=== PATIENT | female | born 1940 | race Caucasian/White ===

== ENCOUNTER 2017-10-02 08:00 | Inpatient (IN) ==
[2017-09-26 14:29] LABS: Basophils # (Auto) 0 K/mcL (0.0-0.3); Basophils % (Auto) 0.4 % (0.0-2.0); Eosinophils # (Auto) 0.2 K/mcL (0.0-0.7); Eosinophils % (Auto) 2.7 % (0.0-7.0); Granulocytes % (Auto) 69.3 % (38.0-78.0); Lymphocytes # (Auto) 1.5 K/mcL (1.5-4.8); Lymphocytes % (Auto) 18.3 % (15.5-49.0); Mean Cell Volume 95.4 fL (80.0-100.0); Mean Corpuscular HGB Conc 34.4 g/dL (31.0-36.0); Mean Corpuscular Hemoglobin 32.8 pg (26.0-34.0); Monocytes # (Auto) 0.8 K/mcL (0.1-0.9); Monocytes % (Auto) 9.3 % (1.0-12.0); Platelet Count 221 K/mcL (140-440); RBC 4.23 M/mcL (4.00-5.20); Red Cell Distribution Width 13.7 % (11.5-14.5)
[2017-09-26 14:35] LABS: Blood Urea Nitrogen 13 mg/dl (8-23)
[~2017-10-02 08:00] MED LIST: CELECOXIB 200 MG CAPSULE PO SCH; PREGABALIN 75 MG CAPSULE PO SCH; ceFAZolin 1 GM VIAL IV SCH; oxyCODONE 10 MG TAB.ER.12H PO SCH
[2017-10-02] MEDS ORDERED: IPRATROPIUM/ALBUTEROL 3 ML AMPUL.NEB NEB ONE ×2 (10:54→10:55)
[2017-10-02] MEDS ORDERED: MIDAZOLAM 5 MG/5 ML VIAL ONE (11:19)
[2017-10-02] MEDS ORDERED: DEXAMETHASONE 10 MG/ML VIAL ONE (11:19)
[2017-10-02] MEDS ORDERED: PROPOFOL 200 MG/20 ML VIAL IV ONE (11:19)
[2017-10-02] MEDS ORDERED: PHENYLEPHRINE 10 MG/ML VIAL ONE (11:19)
[2017-10-02 11:23] LABS: Appearance,Urine CLEAR; Bacteria,Urine 0 /hpf (0); Bilirubin,Urine NEG (NEG); Color,Urine YELLOW; Glucose,Urine (UA) NEGATIVE (NEG); Leukocyte Esterase,Urine NEG /uL (NEG); Mucus,Urine FEW /hpf (0); Protein,Urine NEG (NEG); Specific Gravity,Urine 1.011 (1.000-1.035); Urine Blood 0.03 mg/dL (<0.03); Urine RBC 2 /hpf (0-1); Urine Squamous Epithelial Cell 0 /hpf (0-4); Urine WBC < 1 /hpf (0-4); Urobilinogen,Urine NEG (NEG)
[2017-10-02] MEDS ORDERED: GENTAMICIN SULFATE 800 MG/20 ML VIAL IR ONE (11:52)
--- NOTE | 2017-10-02 12:55 | Brief Operative Note ---
Date of procedure: 10/02/17 Pre-op diagnosis: left hip oa Post-op diagnosis: same Procedure: left total hip arthroplasty Grafts/Implants: Yes Anesthesia: spinal Complications: none Surgeon: Ori Johnson Smoke Jumper: Aracelis Marquez Estimated blood loss (cc): 100 Specimens Removed/Pathology: none sent Condition: stable Disposition: PACU
[2017-10-02] MEDS ORDERED: MAGNESIUM HYDROXIDE 30 ML ORAL.SUSP PO PRN (12:56)
[2017-10-02] MEDS ORDERED: BISACODYL 10 MG SUPP.RECT PR PRN (12:56)
[2017-10-02] MEDS ORDERED: ONDANSETRON 4 MG/2 ML VIAL IV PRN ×2 (12:56→13:12)
[2017-10-02] MEDS ORDERED: TRANEXAMIC ACID 1,000 MG/10 ML VIAL IV ONE (12:56)
[2017-10-02] MEDS ORDERED: METHOCARBAMOL 750 MG TABLET PO PRN (12:56)
[2017-10-02] MEDS ORDERED: ONDANSETRON ODT 4 MG TABLET SL PRN (12:56)
[2017-10-02] MEDS ORDERED: ACETAMINOPHEN 325 MG TABLET PO PRN (12:56)
[2017-10-02] MEDS ORDERED: BENZOCAINE/MENTHOL 1 LOZENGE PO PRN ×2 (12:56→13:12)
[2017-10-02] MEDS ORDERED: FLEETS ADULT ENEMA PR PRN (12:56)
[2017-10-02] MEDS ORDERED: POLYETHYLENE GLYCOL 3350 17 GM PACKET PO PRN (12:56)
[2017-10-02] MEDS ORDERED: NALOXONE HCL 0.4 MG/ML VIAL IV PRN (13:12)
[2017-10-02] MEDS ORDERED: ACETAMINOPHEN 900 MG/90 ML BOTTLE IV ONE (13:12)
[2017-10-02] MEDS ORDERED: IPRATROPIUM/ALBUTEROL 3 ML AMPUL.NEB NEB PRN (13:12)
[2017-10-02] MEDS ORDERED: FLUMAZENIL 0.1 MG/ML ML IV PRN (13:12)
[2017-10-02] MEDS ORDERED: LACTATED RINGERS 250 ML IV PRN (13:12)
[2017-10-02] MEDS ORDERED: METHOCARBAMOL 1,000 MG/10 ML VIAL IV PRN (13:12)
[2017-10-02] MEDS ORDERED: LACTATED RINGERS 1,000 ML IV SCH (13:15)
[2017-10-02] MEDS: MEPERIDINE 25 MG/ML SYRINGE IV PRN ×2 (13:39→13:43)
--- NOTE | 2017-10-02 13:47 | Operative Note ---
DATE OF OPERATION: 10/02/2017 Edited PREOPERATIVE DIAGNOSIS: Degenerative joint disease, left hip. POSTOPERATIVE DIAGNOSIS: Degenerative joint disease, left hip. PROCEDURE: Right total hip arthroplasty. SURGEON: Mirta Johnson M.D. RN MANAGED CARE SURGEON: Aracelis Marquez PA-C. ANESTHESIA: Spinal with LMA assist. ESTIMATED BLOOD LOSS: 150 mL. COMPLICATIONS: None noted. SPECIMENS REMOVED: None. DRAINS: None. IMPLANTS: DePuy [place] Gription acetabular shell, 52 mm; DePuy femoral Actis stem Duofix hip prosthesis, size 8 standard collar; DePuy [place] polyethylene acetabular liner, neutral 38 x 52; DePuy M-Spec metal femoral head, 36 mm -2. INDICATIONS: The patient has had a longstanding history of worsening pain in the hip that has failed conservative treatment. Radiographs have confirmed advanced degenerative joint disease. After a long discussion about treatment options, the patient elected to proceed with a hip arthroplasty. The risks and benefits were discussed with the patient in detail including, but not limited to, the risks of anesthesia, problems with the heart or lungs related to anesthesia, infection, compromise or injury to the nerves and blood vessels, deep venous thrombosis, pulmonary embolism, pneumonia, continued pain after surgery, worsening pain or symptoms after surgery, swelling, loss of motion, instability, leg length discrepancy, and need for repeat surgery. DESCRIPTION OF PROCEDURE: The patient was seen in pre-anesthesia waiting room where all questions were answered and the correct side and site were identified and marked. The patient was then brought to the operating room and administered the anesthetic and given pre-operative antibiotics. A time-out was then called. The patient was placed in the lateral decubitus position with all prominences well-padded using the Miko frame and the extremity was prepped and draped in the usual sterile fashion. Anesthesia gave the patient 1 gm of tranexamic acid via an intravenous route. A standard posterior approach was made. We dissected through the skin and subcutaneous tissue to the deep fascia. The deep fascia was split in line with the incision and a Charnley retractor was placed. We exposed, tagged, and incised the short external rotators and piriformis tendon and retracted them posteriorly to help protect the sciatic nerve which was palpated throughout the case. We then performed a T-capsulotomy and tagged the capsule edges. Prior to dislocating the hip, we set a length and offset gauge from a Steinmann pin in the iliac wing to a mala on the greater trochanter. The hip was then dislocated and a femoral neck osteotomy was performed to the pre-surgical templated level off the lesser trochanter. The head was removed and sized. We next turned our attention to the acetabulum. Retractors were placed for optimal visualization. A complete labral excision was performed. The capsule was preserved for later closure. We began reaming using anatomic landmarks with the DePuy [place] acetabular system. We medialized the cup and reamed up to provide good fill and coverage of the trial. When the trial was stable and appropriately positioned with approximately 20 degrees of anteversion and 45 degrees of abduction, we impacted the DePuy [place] cup and placed a cancellous screw in the posterior-superior quadrant. Osteophytes were removed from around the shell. We placed the trial liner and turned our attention to the femur. We placed retractors for visualization, internally rotated the femur, and established intramedullary access. We broached using the DePuy Actis stem to a stable platform medial, lateral, and rotationally with the appropriate version. We then performed a calcar reaming off the broach. Trials were then placed and optimized for leg length and stability. We used the leg length and offset guide to confirm our trials. Best stability, length, and offset characteristics were obtained with these sizes. We removed all trials and impacted the polyethylene acetabular liner in a standard fashion after a thorough irrigation. We then impacted the femoral stem to its broached location and placed the head. Final reduction was performed. Again, good stability, leg length, and offset characteristics were noted. We irrigated with three liters of antibiotic saline. We closed the capsule with #2 FiberWire. We closed the fascia with a combination of looped #0 Maxon and #0 Vicryl. We closed the subcutaneous tissue and skin in layers out to gagan in the skin. A sterile pressure dressing and abduction wedge was applied. All needle and sponge counts were correct. The patient was transferred to the recovery room in stable condition. Edited 10/10/2017 for incorrect laterality doyle BRANDYN:yeni Job ID: [id number] Doc ID: [id number] Mirta Johnson MD
[2017-10-02] MEDS: fentaNYL 100 MCG/2 ML VIAL IV PRN ×3 (14:05→14:15)
[2017-10-02] MEDS: KETOROLAC 30 MG/ML VIAL IV PRN (15:11)
--- NOTE | 2017-10-02 15:22 | XRay Report ---
CLINICAL INFORMATION: Right total hip prostheses COMPARISON: None. FINDINGS: Right hip prosthesis is anatomically aligned. No osseous abnormality. Soft tissue swelling over the circumflex seen as expected. Mild degenerative change seen in both SI and left hip joints. IMPRESSION: Right total hip prostheses in anatomic alignment. Interpreted and Authenticated by: Ori Rothman 10/02/17
[2017-10-02] MEDS: 0.9 % SODIUM CHLORIDE 10 ML SYRINGE IV SCH ×2 (17:26→20:47)
[2017-10-02] MEDS: HYDROcodone/APAP 10/325MG TABLET PO PRN ×2 (18:15→22:15)
[2017-10-02] MEDS: LACTATED RINGERS 1,000 ML IV SCH ×2 (18:35→21:12)
[2017-10-02] MEDS: ceFAZolin 1 GM VIAL IV SCH (19:25)
[2017-10-02] MEDS: SENNOSIDES 1 TABLET PO SCH (20:47)
[2017-10-02] MEDS: ATORVASTATIN 20 MG TABLET PO SCH (20:47)
[2017-10-02] MEDS: ASPIRIN 325 MG ENTERIC COATED TABLET PO SCH (20:47)
[2017-10-02] MEDS: DOCUSATE SODIUM 100 MG CAPSULE PO SCH (20:47)
[2017-10-03] MEDS: HYDROcodone/APAP 10/325MG TABLET PO PRN ×4 (00:16→20:36)
[2017-10-03] MEDS: ceFAZolin 1 GM VIAL IV SCH (02:59)
[2017-10-03] MEDS: 0.9 % SODIUM CHLORIDE 10 ML SYRINGE IV SCH ×3 (05:59→20:38)
[2017-10-03] MEDS: LACTATED RINGERS 1,000 ML IV SCH ×3 (05:59→20:26)
--- NOTE | 2017-10-03 07:51 | Orthopedic Progress Note ---
Subjective Patient information: Note initiated : 10/03/17 at 7:49 am Service Date, if different from initiated Date: [] Patient: Dyana Marrero 77 y/o F admitted on 10/02/17 for Right Total Hip Arthroplasty. Chief Complaint: [] Interval history: doing well. pain under control, hasn't ambulated yet Objective Vital signs: Vital Signs Temp Pulse Resp BP BP Pulse Ox 10/03/17 07:19 98.1 F 68 20 101/59 95 10/03/17 03:01 98.5 F 75 20 90/51 96 10/03/17 00:00 98.0 F 74 20 91/49 96 10/02/17 19:44 97.6 F 70 24 H 116/74 95 10/02/17 16:02 71 144/84 97 10/02/17 15:47 60 120/72 100 10/02/17 15:32 63 113/73 100 10/02/17 15:17 57 L 119/74 98 10/02/17 15:02 63 119/74 97 10/02/17 14:47 66 126/76 97 10/02/17 14:33 66 115/69 97 10/02/17 14:20 98.2 F 77 16 111/62 100 10/02/17 14:05 98.0 F 72 16 109/65 95 10/02/17 13:50 98.0 F 72 16 109/65 95 10/02/17 13:35 98.0 F 89 14 114/74 97 10/02/17 13:30 98.0 F 94 H 16 101/64 98 10/02/17 13:25 98.0 F 90 16 117/71 97 10/02/17 13:20 98.0 F 82 16 125/64 96 10/02/17 08:00 97.6 F 70 16 144/80 97 Intake and Output 10/02/17 10/03/17 10/03/17 21:59 05:59 13:59 Intake Total 1130 / 1130 1400 / 1400 Output Total 550 / 550 700 / 700 Balance 580 / 580 700 / 700 Intake: IV 90 / 90 1000 / 1000 Lactated Ringers 1,000 ml @ 125 1000 / 1000 mls/hr IV .Q8H [facility] Rx#: [id number] Oral 1040 / 1040 400 / 400 Output: Void Amount 550 / 550 700 / 700 Other: Meal Dinner Percent of Meal Consumed 75% Feeding Ability Independent # Voids 1 1 Weight 140 lb 8 oz Intake & Output: Intake & Output 10/02/17 10/03/17 10/03/17 21:59 05:59 13:59 Intake Total 1130 / 1130 1400 / 1400 Output Total 550 / 550 700 / 700 Balance 580 / 580 700 / 700 Weight 140 lb 8 oz Intake: IV 90 / 90 1000 / 1000 Lactated Ringers 1,000 ml @ 125 1000 / 1000 mls/hr IV .Q8H [facility] Rx#: [id number] Oral 1040 / 1040 400 / 400 Output: Void Amount 550 / 550 700 / 700 Other: Meal Dinner Percent of Meal Consumed 75% Feeding Ability Independent # Voids 1 1 Incision: Yes healing Incision clean and dry: Yes Dressing: Yes clean, Yes dry, Yes intact Weight bearing status: full Neurological exam IM: Yes abnormal gait, Yes alert, Yes oriented X3, Yes motor sensory intact, Yes neurovascular intact Extremities exam IM: No calf tenderness, Yes Foot pink and warm, Yes neurovascular intact - Labs CBC & BMP: 10/03/17 05:00 09/26/17 12:04 Labs: 10/03/17 09/26/17 05:00 12:05 Hgb 10.4 L 13.9 Hct 31.1 L 40.4 Assessment and Plan (1) Hip osteoarthritis pod 1 s/p inocencio wbat pain control dvt prophylaxis d/c planning - likely swing sunday Status: Acute
--- NOTE | 2017-10-03 07:51 | Discharge Summary ---
Ortho Discharge - NATHALY - Patient Instructions Diet: Regular Diet Activity: activity as tolerated, weight bearing as tolerated Total Hip Protocol: Follow activity instructions as provided by Physical Therapy. Dressing Care: May shower in 2 days - Problem Maintenance (1) Hip osteoarthritis Status: Acute - Follow Up Plan Disposition: Xfer SNF Prognosis: Good Rehab Potential: Good I certify that the patient requires SNF services: Yes Overall status at discharge: patient is progressing back to baseline
[2017-10-03] MEDS: ASPIRIN 325 MG ENTERIC COATED TABLET PO SCH ×2 (11:48→20:35)
[2017-10-03] MEDS: DOCUSATE SODIUM 100 MG CAPSULE PO SCH ×2 (11:48→20:35)
[2017-10-03] MEDS: KETOROLAC 30 MG/ML VIAL IV PRN (14:00)
[2017-10-03] MEDS: ATORVASTATIN 20 MG TABLET PO SCH (20:35)
[2017-10-03] MEDS: SENNOSIDES 1 TABLET PO SCH (20:36)
[2017-10-04] MEDS: HYDROcodone/APAP 10/325MG TABLET PO PRN ×3 (03:46→20:34)
[2017-10-04] MEDS: 0.9 % SODIUM CHLORIDE 10 ML SYRINGE IV SCH ×3 (06:00→20:32)
[2017-10-04] MEDS: LACTATED RINGERS 1,000 ML IV SCH ×3 (06:08→21:11)
--- NOTE | 2017-10-04 06:35 | Orthopedic Progress Note ---
Subjective Patient information: Note initiated : 10/04/17 at 6:33 am Service Date, if different from initiated Date: [] Patient: Dyana Marrero 77 y/o F admitted on 10/02/17 for Right Total Hip Arthroplasty. Chief Complaint: [POD #2 s/p right NATHALY Patient doing well. Mild hip pain, ambulating okay. Denies CP, SOB, numbness, tingling or calf pain. No questions or concerns. ] Objective Vital signs: Vital Signs Temp Pulse Resp BP Pulse Ox 10/04/17 04:00 98.6 F 80 22 126/73 95 10/03/17 23:55 98.4 F 84 22 103/65 93 10/03/17 20:00 98.3 F 68 24 H 112/68 93 10/03/17 16:00 98.4 F 89 20 135/73 96 10/03/17 11:46 96.9 F L 63 20 114/70 94 10/03/17 07:19 98.1 F 68 20 101/59 95 Intake and Output 10/03/17 10/04/17 10/04/17 21:59 05:59 13:59 Intake Total 360 / 360 800 / 800 Output Total 700 / 700 300 / 300 Balance -340 / -340 500 / 500 Intake: Oral 360 / 360 800 / 800 Output: Void Amount 700 / 700 300 / 300 Other: Meal Dinner Percent of Meal Consumed 100% # Voids 1 1 Weight 141 lb Intake & Output: Intake & Output 10/03/17 10/04/17 10/04/17 21:59 05:59 13:59 Intake Total 360 / 360 800 / 800 Output Total 700 / 700 300 / 300 Balance -340 / -340 500 / 500 Weight 141 lb Intake: Oral 360 / 360 800 / 800 Output: Void Amount 700 / 700 300 / 300 Other: Meal Dinner Percent of Meal Consumed 100% # Voids 1 1 Incision: Yes healing, No draining, No red, No swollen, No inflamed, Yes clean and dry Incision clean and dry: Yes Dressing: Yes clean, Yes dry, Yes intact Weight bearing status: as tolerated Range of motion: Full b/l ankles, feet, knees Neurological exam IM: Yes alert, Yes oriented X3, Yes motor sensory intact, Yes neurovascular intact Extremities exam IM: No calf tenderness, Yes normal capillary refill, Yes normal inspection, Yes Foot pink and warm, Yes neurovascular intact - Periperhal Pulses Peripheral pulses: 2+: dorsalis pedis (L), dorsalis pedis (R), posterior tibialis (L), posterior tibialis (R) - Labs CBC & BMP: 10/04/17 04:50 09/26/17 12:04 Labs: 10/04/17 10/03/17 09/26/17 04:50 05:00 12:05 Hgb 9.7 L 10.4 L 13.9 Hct 28.1 L 31.1 L 40.4 Assessment and Plan (1) Hip osteoarthritis POD #2 s/p right NATHALY: -to swing bed tomorrow -pain control -DVT prophylaxis -inpatient PT -WBAT Status: Acute
[2017-10-04] MEDS: DOCUSATE SODIUM 100 MG CAPSULE PO SCH ×2 (08:50→20:33)
[2017-10-04] MEDS: ASPIRIN 325 MG ENTERIC COATED TABLET PO SCH ×2 (08:50→20:33)
[2017-10-04] MEDS: KETOROLAC 30 MG/ML VIAL IV PRN (12:30)
[2017-10-04] MEDS: ATORVASTATIN 20 MG TABLET PO SCH (20:33)
[2017-10-04] MEDS: SENNOSIDES 1 TABLET PO SCH (20:33)
[2017-10-05] MEDS: LACTATED RINGERS 1,000 ML IV SCH (04:01)
[2017-10-05] MEDS: 0.9 % SODIUM CHLORIDE 10 ML SYRINGE IV SCH (04:01)
--- NOTE | 2017-10-05 06:27 | Discharge Summary ---
Providers - Providers Patient information: Note initiated : 10/05/17 at 6:25 am Service Date, if different from initiated Date: [] Patient: Dyana Marrero 77 y/o F admitted on 10/02/17 for Right Total Hip Arthroplasty. Chief Complaint: [POD #3 s/p right NATHALY Patient doing very well this morning. Ambulating well. Denies numbness, tingling , CP, SOB, calf pain. Has no questions or concerns.] Discharge date: 10/05/17 Hospitalization Hospital course: Patient was brought into OR on 10/02/17 for right NATHALY which went on without complication. She was admitted overnight for 3 nights for pain control and observation. Her hospital stay was without event. She will d/c today to [facility] for continued observation and acute rehab. She will follow up in the clinic in 10-14 days for post op appointment. Discharge diagnosis: hip osteoarthritis Exam - Exam Incision healing: Yes Incision draining: No Incision red: No Incision swollen: No Incision inflamed: No Clean and dry: Yes Weight bearing status: as tolerated Range of motion: Full b/l ankles, feet, knees. Hip flexion 120, ER/IR 30 Ortho Discharge - NATHALY - Patient Instructions Diet: Regular Diet Activity: activity as tolerated, weight bearing as tolerated Total Hip Protocol: Follow activity instructions as provided by Physical Therapy. Patient Education: Total Hip Replacement (DC) Additional Instructions: Discharge Instructions: Do the exercises at home that physical therapy gave you throughout the day. Take your prescription to brain picker any medication or equipment (such as walker, crutches, toilet riser or C.P.M.) Wear comfortable clothing for your physical therapy. Weight bearing as tolerated. You have Dermabond (a dressing with a mesh-like appearance), leave open to air. Do not remove this dressing. You may start showering on post op day #2. The Dermabond dressing can get wet, do not scrub dressing. Pat dry. To avoid constipation while taking any narcotic pain medication, take an over the counter stool softener/laxative. Use ice packs as directed, on for 20 minutes at a time throughout the day. This and elevation will help with pain and swelling. Call your physician for fevers above 100.5 or pain not controlled by medication. Your prescriptions are with your discharge information. Some medications were electronically transmitted to your pharmacy of choice. - Problem Maintenance (1) Hip osteoarthritis Status: Acute - Follow Up Plan Follow Up Appointments: Ori Johnson MD [Physician] - 10/17/17 10:00 am Disposition: Xfer SNF Prognosis: Good Rehab Potential: Good I certify that the patient requires SNF services: Yes - Orders For Discharge Prescriptions: Aspirin [Ecotrin] 325 mg PO BID #60 tab.ec HYDROcodone/APAP 10/325MG [Michael 10-325Mg] 1 - 2 tab PO Q4H PRN #60 tab PRN Reason: Pain Additional Discharge Orders: Physical Therapy at Discharge - NATHALY Location: Determined By Patient Toilet Riser Discharge Order Location: Determined By Patient Walker Location: Determined By Patient Pending Studies Resuscitation Status Full Code Diet Regular Diet Start SunOct 02 1257 Hydrocodone Bitart/Acetaminophen (Michael 10/325mg) 0 tab PO Q4HP PRN PRN Reason: PAIN LEVEL 3-6 Last Admin: 10/04/17 20:34 Dose: 1 tab Admin: 10/04/17 08:50 Dose: 1 tab Admin: 10/04/17 03:46 Dose: 1 tab Admin: 10/03/17 20:36 Dose: 1 tab Admin: 10/03/17 16:36 Dose: 1 tab Admin: 10/03/17 05:58 Dose: 2 tab Admin: 10/03/17 00:16 Dose: 1 tab Admin: 10/02/17 22:15 Dose: 1 tab Admin: 10/02/17 18:15 Dose: 1 tab Aspirin (Ecotrin) 325 mg PO BID [facility] Last Admin: 10/04/17 20:33 Dose: 325 mg Admin: 10/04/17 08:50 Dose: 325 mg Admin: 10/03/17 20:35 Dose: 325 mg Admin: 10/03/17 11:48 Dose: 325 mg Admin: 10/02/17 20:47 Dose: 325 mg Atorvastatin Calcium (Lipitor) 10 mg PO HS [facility] Last Admin: 10/04/17 20:33 Dose: 10 mg Admin: 10/03/17 20:35 Dose: 10 mg Admin: 10/02/17 20:47 Dose: 10 mg Docusate Sodium (Colace) 100 mg PO BID [facility] Last Admin: 10/04/17 20:33 Dose: 100 mg Admin: 10/04/17 08:50 Dose: 100 mg Admin: 10/03/17 20:35 Dose: 100 mg Admin: 10/03/17 11:48 Dose: 100 mg Admin: 10/02/17 20:47 Dose: 100 mg Lactated Ringer's (Lactated Ringers) 1,000 mls @ 125 mls/hr IV .Q8H [facility] Last Admin: 10/05/17 04:01 Dose: Admin: 10/04/17 21:11 Dose: Admin: 10/04/17 16:25 Dose: Admin: 10/04/17 06:08 Dose: Admin: 10/03/17 20:26 Dose: Admin: 10/03/17 18:46 Dose: Admin: 10/03/17 05:59 Dose: Infusion: 10/03/17 02:51 Dose: 0 mls/hr Admin: 10/02/17 21:12 Dose: Not Given Admin: 10/02/17 18:35 Dose: 125 mls/hr Senna (Senokot) 2 tab PO HS [facility] Last Admin: 10/04/17 20:33 Dose: 2 tab Admin: 10/03/17 20:36 Dose: 2 tab Admin: 10/02/17 20:47 Dose: 2 tab Sodium Chloride (Saline Flush) 10 ml IV Q8 [facility] Last Admin: 10/05/17 04:01 Dose: Admin: 10/04/17 20:32 Dose: 10 ml Admin: 10/04/17 14:00 Dose: 10 ml Admin: 10/04/17 06:00 Dose: 10 ml Admin: 10/03/17 20:38 Dose: 10 ml Admin: 10/03/17 18:47 Dose: Admin: 10/03/17 05:59 Dose: 10 ml Admin: 10/02/17 20:47 Dose: 10 ml Admin: 10/02/17 17:26 Dose: Not Given Shift Summary 10/05/17 04:48 Shift Summary by Kiara Hendricks Alert and oriented. Slept well tonight. Medicated for pain x1 at HS with Michael 10mg. Up with SBA and FWW. Voids QS in BR, wears pad for dribbling. Dressing changed last night, dermabond in place, open to air. Small incision above main incision without dermabond is draining small amount of serosanguineous drainage , placed gauze and medipore over site. IV was inadvertently d/c'd while sleeping , did not replace. VSS. Calls appropriately. Discharge today to [facility]. Initialized on 10/05/17 04:48 - END OF NOTE Exam Temp Pulse Resp BP Pulse Ox 98.4 F 88 18 136/87 94 10/05/17 04:00 10/05/17 04:00 10/05/17 04:00 10/05/17 04:00 10/05/17 04:00 - General physical appearance well developed, well nourished - Cardiovascular Peripheral pulses: 2+: dorsalis pedis (L), dorsalis pedis (R), posterior tibialis (L), posterior tibialis (R) - Neurologic Present: normal sensation (B/l LE NVI)
[2017-10-05] MEDS: DOCUSATE SODIUM 100 MG CAPSULE PO SCH (08:37)
[2017-10-05] MEDS: ASPIRIN 325 MG ENTERIC COATED TABLET PO SCH (08:38)
[2017-10-05] MEDS: HYDROcodone/APAP 10/325MG TABLET PO PRN (12:14)
== END 2017-10-05 12:30 | DRG 470 ==
LOC: MEDSUR 08:00
PROVIDERS: ADMIT Orthopaedic Surgery Sports Medicine; ATTEND Orthopaedic Surgery Sports Medicine